=== PATIENT | male | born 1930 | race Caucasian/White ===

== ENCOUNTER 2016-09-09 12:30 | Emergency (ER) | payer MEDICARE ==
[~2016-09-09 12:30] MED LIST: Sodium Chloride 0.9% 1,000 ML BAG ONE; Sodium Chloride 0.9% 100 ML BAG ONE; Sodium Chloride 0.9% 500 ML BAG ONE
[2016-09-09] MEDS ORDERED: cefTRIAXone\\ROCEPHIN 1 GM VIAL ONE (13:11)
[2016-09-09 13:42] LABS: Anion Gap 19 mmol/L (10-20); BUN (Urea Nitrogen) 30 mg/dL (8.4-25.7); Calc. Creatinine Clearance 0 mL/min (70-130); Calcium 9.3 mg/dL (7.8-10.44); Carbon Dioxide 33 mmol/L (23-31); Chloride 96 mmol/L (98-107); Eosinophils 4 % (0-10); Estimated GFR-MDRD 64; Glucose 80 mg/dL (83-110); Hemoglobin 10.6 g/dL (14.0-18.0); Lymphocytes 30 % (21-51); MDiff Complete? YES; Mean Corpuscular HGB CONC 30.9 g/dL (32.0-36.0); Mean Corpuscular Hemoglobin 25.7 pg (27.0-31.0); Mean Corpuscular Volume 83.2 fl (80.0-94.0); Mean Platelet Volume 8.5 fL (7.4-10.4); Monocytes 10 % (0-10); Neutrophil 52 % (42-75); Platelet Count 262 thou/uL (130-400); Potassium 4.1 mmol/L (3.5-5.1); RBC Distribution Width 15.7 % (11.5-14.5); Reactive Lymphocytes 4 % (0-10); Red Blood Cell (RBC) Count 4.12 mill/uL (4.70-6.10); Sodium 144 mmol/L (136-145); White Blood Cell (WBC) Count 4.3 thou/uL (4.8-10.8)
--- NOTE | 2016-09-09 13:46 | CT ---
CT HEAD NONCONTRAST; Date: 09/09/16 HISTORY: Altered mental status. COMPARISON: 06/18/16. FINDINGS: There is no evidence of acute intracranial hemorrhage or infarct. Diffuse cortical atrophy and promi nent chronic ischemic small vessel disease are again demonstrated. Old lacunar infarcts and prominen t arterial calcification are evident. There is no mass effect or shift of midline structures. Left f rontal scalp swelling has decreased since the prior exam. IMPRESSION: No acute intracranial abnormalities are demonstrated. POS: [facility]
[2016-09-09 13:48] LABS: Bilirubin Negative (Negative); Blood, Urine Small (Negative); Clarity Clear (Clear); Glucose, Urine (Dipstick) Negative (Negative); Leukocyte Negative (Negative); Nitrite Negative (Negative); Protein, Urine (Dipstick) Negative (Neg-Trace); Specific Gravity, Urine 1.015 (1.005-1.030); Urobilinogen 0.2 mg/dL (0.2-1.0)
--- NOTE | 2016-09-09 13:51 | RAD ---
PORTABLE AP CHEST: Date: 09/09/16 HISTORY: Altered mental status. COMPARISON: 05/15/16. FINDINGS: Again noted are pleural and parenchymal changes at the right lung base, also seen on the prior exam. Findings may be related to persistent pneumonia and pleural effusion, but given persistence of this finding, CT scan thorax is suggested for further evaluation. There is persistent mild elevation left hemidiaphragm with mild volume loss at the left lung base. C ardiac silhouette is magnified by projection, but does appear enlarged. Pulmonary vasculature is wit hin normal limits. No other interval change. IMPRESSION: 1. Pleural and parenchymal changes at the right lung base. Given persistence of this finding since the prior study, CT scan thorax is suggested for further evaluation. 2. Mild cardiomegaly. 3. Stable elevation left hemidiaphragm. POS: [facility]
[2016-09-09 13:57] LABS: Bacteria/HPF Rare-Few HPF (None Seen); Squamous Epithelial 0-3 HPF (0-3); WBC/HPF 0-3 HPF (0-3)
[2016-09-09 13:58] LABS: Amphetamine Not Detected (NotDetected); Barbiturates Screen Not Detected (NotDetected); Benzodiazepine Screen Not Detected (NotDetected); Cocaine Metabolite Screen Not Detected (NotDetected); Medtox Control Line Valid? VALID (VALID); Methadone Not Detected (NotDetected); Methamphetamine Not Detected (NotDetected); Opiate Screen Not Detected (NotDetected); Oxycodone Screen Not Detected (NotDetected); Phencyclidine (PCP) Not Detected (NotDetected); THC/Cannabinoid Screen Not Detected (NotDetected); Tricyclic Screen Not Detected (NotDetected)
[2016-09-09 14:06] LABS: Troponin I 0.048 ng/mL (< 0.028)
[2016-09-09 14:07] LABS: CKMB 10.3 ng/mL (0-6.6)
--- NOTE | 2016-09-09 17:34 | ERRECORD ---
[facility] EMERGENCY RECORD HPI MENTAL STATUS CHANGES (12:51 RWAG) CHIEF COMPLAINT: Patient presents for evaluation of mental status changes. HISTORIAN: Additional history obtained from shelter, difficult to rouse at [place], cursing at staff when stimulated, last seen "normal" at 0930am. Pt has dementia. LOCATION: Symptoms are generalized. QUALITY: Patient is, oriented to person, [place] coma score, Eye opening: (3) To speech, Verbal: (3) - Inappropriate words, Motor: (5) - Localizes Pain, GCS Total: 11. SEVERITY: Maximum severity of symptoms mild, Currently symptoms are mild. TIME COURSE: Patient unable to describe onset of symptoms. EXACERBATED BY: Patient's condition exacerbated by nothing. RELIEVED BY: Patient's condition relieved by nothing. ROS (12:53 RWAG) CONSTITUTIONAL: Historian reports weakness. EYES: Negative eye review of systems. ENT: Negative ears, nose, throat review of systems. CARDIOVASCULAR: Negative cardiovascular review of systems. RESPIRATORY: Negative respiratory review of systems. GI: Negative gastrointestinal review of systems. GENITOURINARY MALE: Negative genitourinary review of systems. MUSCULOSKELETAL: Negative musculoskeletal review of systems. SKIN: Negative skin review of systems. NEUROLOGIC: Negative neurologic review of systems. ENDOCRINE: Negative endocrine review of systems. HEMO/LYMPHATIC: Normal hematologic/lymphatic system review. ALLERGIC/IMMUNOLOGIC: Normal allergy/immunologic system review. PSYCHIATRIC: Historian reports emotional lability, reports memory loss, reports mood changes. NOTES: All systems reviewed, negative except as described above. PAST MEDICAL HISTORY (12:43 AWAT) MEDICAL HISTORY: Notes: Skin cancer, Anemia, CHF, HypoNatremia, Hyperlipidemia, Insomnia, Constipation, Venous Insufficiency, Weakness, HTN, Dementia. MALE SURGICAL HISTORY: Skin ca removal -RIGHT HAND , RIGHT INGUINAL HERNIORRAPHY, Surgical history of hernia repair, Date of surgery 06/13/12, Notes DONE AT THE [facility]. LEFT KNEE REPLACEMENT, LAST [place] SPUR REMOVED. PSYCHIATRIC HISTORY: Notes: DEMENTIA, Anxiety. SOCIAL HISTORY: Patient denies alcohol use, Patient denies drug use, Patient has no smoking history. KNOWN ALLERGIES Advil: - LIPS SWELL aspirin (Unconfirmed) &a-1R&a+25V*p+0X*[id number]*c202B*c15G*c2P*p-0X&a-25V&a+1R Name: Prosper Stoll : 1930 M86 MedRec: [id number] AcctNum: [id number] Prepared: Sirisha Sep 25, 2016 06:15 by Interface Page 1 of 4 pMD [facility] EMERGENCY RECORD aspirin (bulk) furosemide (Unconfirmed): Reaction: Rash ibuprofen (Unconfirmed): - SWELLING LIPS Lasix: Reaction: Rash NSAIDS (Non-Steroidal Anti-Inflamma (Unconfirmed) RisperDAL risperidone (Unconfirmed) traZODone CURRENT MEDICATIONS Depakote: TABLET, DELAYED RELEASE (ENTERIC COATED) : Strength - 250 mg : ORAL Patient Dose: 250 mg Oral 2 times a day. (12:47 AWAT) melatonin: LOZENGE : Strength - 3 mg : ORAL Patient Dose: 10 mg Oral once a day (at bedtime). (12:47 AWAT) Miralax: POWDER (GRAM) : Strength - 17 gram/dose : ORAL Patient Dose: 17 g Oral once a day (in the morning). (12:47 AWAT) Aricept: TABLET : Strength - 10 mg : ORAL Patient Dose: 1 tab(s) Oral once a day (at bedtime). (12:47 AWAT) mirtazapine: TABLET : Strength - 15 mg : ORAL Patient Dose: 15 mg Oral once a day (at bedtime).last night was first dose. (12:48 AWAT) Bumex: TABLET : Strength - 2 mg : ORAL Patient Dose: 3 mg Oral 2 times a day. (12:48 AWAT) Senokot-S: TABLET : Strength - 8.6 mg-50 mg : ORAL Patient Dose: 1 tab(s) Oral 2 times a day. (12:49 AWAT) Aspirin Child: TABLET, CHEWABLE : Strength - 81 mg : ORAL Patient Dose: 81 mg Oral once a day. (12:49 AWAT) Zaroxolyn: TABLET : Strength - 5 mg : ORAL Patient Dose: 5 mg Oral once a week.on . (12:50 AWAT) K-Dur: TABLET, EXT RELEASE, PARTICLES/CRYSTALS : Strength - 20 mEq : ORAL Patient Dose: 20 mEq Oral 2 times a day. (12:51 AWAT) VITAL SIGNS VITAL SIGNS: BP: 134/59, Pulse: 72, Resp: 19, O2 sat: 99 on 2L Oxygen, Time: 09/09/2016 12:33. (12:33 AWA) Temp: 96.5 (Tympanic), Time: 09/09/2016 12:44. (12:44 CJEF) &a-1R&a+25V*p+0X*g3311G*c202B*c15G*c2P*p-0X&a-25V&a+1R Name: Prosper Stoll : 1930 M86 MedRec: [id number] AcctNum: [id number] Prepared: Sirisha Sep 25, 2016 06:15 by Interface Page 2 of 4 pMD [facility] EMERGENCY RECORD BP: 129/62, Pulse: 66, Resp: 20, Pain: 0, O2 sat: 98 on 2L Oxygen, Time: 09/09/2016 13:35. (13:35 CJEF) BP: 86/99, Pulse: 61, Resp: 15, Pain: 0, O2 sat: 97 on 2L Oxygen, Time: 09/09/2016 14:05. (14:05 CJEF) BP: 108/32, Pulse: 60, Resp: 18, Pain: 0, O2 sat: 100 on 2L Oxygen, Time: 09/09/2016 14:42. (14:42 CJEF) BP: 112/78, Pulse: 65, Resp: 15, Pain: 0, O2 sat: 95 on 2L Oxygen, Time: 09/09/2016 15:32. (15:32 CJEF) BP: 109/57, Pulse: 79, Resp: 20, Pain: 0, O2 sat: 100 on 2L Oxygen, Time: 09/09/2016 16:01. (16:01 CJEF) Temp: 94.5 (Tympanic), Time: 09/09/2016 16:03. (16:03 CJEF) BP: 126/77, Pulse: 76, Resp: 20, Pain: 0, O2 sat: 95 on 2L Oxygen, Time: 09/09/2016 16:26. (16:26 CJEF) BP: 134/89, Pulse: 75, Resp: 19, Temp: 95.6 (Tympanic), Pain: 0, O2 sat: 96 on 2L Oxygen, Time: 09/09/2016 16:50. (16:50 CJEF) BP: 116/70, Pulse: 71, Resp: 20, Pain: 0, O2 sat: 96 on 2L Oxygen, Time: 09/09/2016 17:04. (17:04 CJEF) BP: 100/57, Pulse: 66, Resp: 16, Pain: 0, O2 sat: 97 on 2L Oxygen, Time: 09/09/2016 17:16. (17:16 CJEF) Temp: 95.8 (Tympanic), Time: 09/09/2016 17:24. (17:24 CJEF) PHYSICAL EXAM (12:54 RWAG) CONSTITUTIONAL: Vital Signs Reviewed, Patient febrile, temperature of 96.5. HEAD: Head exam normal. EYES: Eye exam normal. ENT: ENT exam normal. NECK: Neck exam normal. RESPIRATORY CHEST: Respiratory and chest exam normal. CARDIOVASCULAR: Cardiovascular assessment normal. ABDOMEN MALE: Abdominal exam normal. GENITOURINARY MALE: External genitalia normal. BACK: Back exam normal. UPPER EXTREMITY: Upper extremity exam normal. LOWER EXTREMITY: Lower extremity exam included findings of inspection abnormal, chronic LE edema; Rx with compression wraps, Range of motion, pt contracted,bedridden. NEURO: Neuro exam findings include patient oriented to, person, [place] coma scale, Eye opening: (3) To speech, Verbal: (3) - Inappropriate words, Motor: (5) - Localizes Pain, GCS Total: 11. LYMPHATIC: Lymphatic exam normal. EKG INTERPRETATION (12:49 RWAG) 12 LEAD EKG INTERPRETATION: 12 lead EKG interpreted by Emergency Department Physician at time of study, 12 lead EKG shows normal sinus rhythm, Rate (beats per minute): 71, with no ectopics, No previous EKG available for comparison, Conduction normal, T waves normal, Radnor normal, Clinical impression:, non-specific EKG. &a-1R&a+25V*p+0X*[id number]*c202B*c15G*c2P*p-0X&a-25V&a+1R Name: Prosper Stoll : 1930 M86 MedRec: [id number] AcctNum: [id number] Prepared: Sirisha Sep 25, 2016 06:15 by Interface Page 3 of 4 pMD [facility] EMERGENCY RECORD RADIOLOGYINTERPRETATION (14:52 RW) CHEST: Chest films negative, no infiltrates, no pneumothorax, no hemothorax, no masses, no cardiomegaly, no congestive heart failure, no effusion, no free air. MEDICATION ADMINISTRATION SUMMARY Drug Name: *sodium chloride 0.9 % intravenous, Dose Ordered: 1 L, Route: IV Fluid Infusion, Status: Given, Time: 14:38 09/09/2016, Drug Name: *vancomycin intravenous, Dose Ordered: 1 g, Route: IV Piggy Back, Status: Given, Time: 14:22 09/09/2016, Drug Name: cefTRIAXone injection, Dose Ordered: 1 g, Route: IV Piggy Back, Status: Given, Time: 13:17 09/09/2016, Drug Name: sodium chloride 0.9 % intravenous, Dose Ordered: 500 mL, Route: IV Fluid Infusion, Status: Given, Time: 13:16 09/09/2016, *Additional information available in notes, Detailed record available in Medication Service section. PROBLEM LIST No recorded problems DIAGNOSIS (15:01 RW) FINAL: PRIMARY: Sepsis. PRESCRIPTION No recorded prescriptions DISPOSITION PATIENT: Disposition Type: Transfer, Disposition: Transfer to [facility], Disposition Transport: Ambulance, Condition: Guarded. (15:01 RW) Patient left the department. (17:[address] [facility]) Márquez: AWAT=SATNAM Faye, Moses CJEF=SATNAM Maya, Nellie RWAG=MD Freeman, Roby &a-1R&a+25V*p+0X*[id number]*c202B*c15G*c2P*p-0X&a-25V&a+1R Name: Prosper Stoll : 1930 M86 MedRec: [id number] AcctNum: [id number] Prepared: Sirisha Sep 25, 2016 06:15 by Interface Page 4 of 4 pMD MTDD
--- NOTE | 2016-09-09 17:37 | PICIS ---
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 administration, Line traced prior to administration, Catheter placement confirmed via flush prior to administration, IV site without signs or symptoms of infiltration during medication administration, No swelling during administration, No drainage during administration, IV flushed after administration, Correct patient, time, route, dose and medication confirmed prior to administration, Patient advised of actions and side-effects prior to administration, Allergies confirmed and medications reviewed prior to administration, Patient tolerated procedure well, Patient in position of comfort, Side rails up, Cart in lowest position, Family at bedside. : Follow Up : Response assessment performed, No signs or symptoms of allergic reaction noted, Site inspection shows, No swelling at administration site, No drainage at administration site, No bleeding at site, No bruising noted at site, _IV SITE #1:_, Medication infusion discontinued, on MonSep 09, 2016 13:50, 35 minutes, ., Total amount infused: 1G. (13:50 SFRE) sodium chloride 0.9 % intravenous: Order: sodium chloride 0.9 % &a-1R&a+25V*p+0X*[id number]*c202B*c15G*c2P*p-0X&a-25V&a+1R Name: Prosper Stoll : 1930 M86 MedRec: [id number] AcctNum: [id number] Prepared: Sirisha Sep 25, 2016 06:21 by Interface Page 10 of 18 pMD [facility] EMERGENCY RECORD intravenous (0.9 % sodium chloride) - Dose: 500 mL : IV Fluid Infusion Schedule: Now Ordered by: Roby Millard MD Entered by: Roby Millard MD MonSep 09, 2016 12:48 Documented as given by: Moses Faye RN MonSep 09, 2016 13:16 Patient, Medication, Dose, Route and Time verified prior to administration. Amount given: 500ml, IV SITE #1 IV fluids established for hydration, IV SITE #1 into left wrist, IV SITE #1 1st bag hung, IV SITE #1 bolus of 500 ml established, via primary tubing, IV SITE #1 on IV pump, Awake and alert- acceptable, Connections checked prior to administration, Line traced prior to administration, Catheter placement confirmed via flush prior to administration, IV site without signs or symptoms of infiltration during medication administration, No swelling during administration, No drainage during administration, IV flushed after administration, Correct patient, time, route, dose and medication confirmed prior to administration, Patient advised of actions and side-effects prior to administration, Allergies confirmed and medications reviewed prior to administration, Patient tolerated procedure well, Patient in position of comfort, Side rails up, Cart in lowest position, Family at bedside. : Follow Up : Response assessment performed, No signs or symptoms of allergic reaction noted, _IV SITE #1:_, IV fluid infusion discontinued, on MonSep 09, 2016 14:03, 50 minutes, ., Total amount infused: 500MG, Advised not to ambulate without assistance, Patient in position of comfort, Side rails up, Cart in lowest position, Family at bedside. (14:03 [facility]) sodium chloride 0.9 % intravenous: Order: sodium chloride 0.9 % intravenous (0.9 % sodium chloride) - Dose: 1 L : IV Fluid Infusion Schedule: Now Notes: (Bolus) Ordered by: Roby Millard MD Entered by: Roby Mlilard MD MonSep 09, 2016 14:21 , Acknowledged by: Kira Gaspar RN MonSep 09, 2016 14:30 Documented as given by: Kira Gaspar RN MonSep 09, 2016 14:38 Patient, Medication, Dose, Route and Time verified prior to administration. Amount given: 1L, IV SITE #1 IV fluids established for hydration, IV SITE #1 into right forearm, IV SITE #1 2nd bag hung, amount 1 Liter hung, IV SITE #1 bolus of 1000 ml established, IV SITE #1 Rate of bolus, 999, ml/hr, IV SITE #1 Repeat bolus of 1000 ml established, Type: NS, Awake and alert- acceptable, Catheter placement confirmed via flush prior to administration, IV site without signs or symptoms of infiltration during medication administration, No swelling during administration, No drainage during administration, IV flushed after administration, Correct patient, time, route, dose and medication confirmed prior to administration, Patient advised of actions and side-effects prior to administration, Allergies confirmed and &a-1R&a+25V*p+0X*[id number]*c202B*c15G*c2P*p-0X&a-25V&a+1R Name: Prosper Stoll : 1930 M86 MedRec: [id number] AcctNum: [id number] Prepared: Sirisha Sep 25, 2016 06:21 by Interface Page 11 of 18 pMD [facility] EMERGENCY RECORD medications reviewed prior to administration, Patient in position of comfort, Side rails up, Cart in lowest position, Family at bedside. : Follow Up : Response assessment performed, No signs or symptoms of allergic reaction noted, _IV SITE #1:_, IV fluid infusion discontinued, on MonSep 09, 2016 16:03, Total fluid hydration time IV site 1 1 hour, 25 minutes, ., Total amount infused: 1L. (16:03 SFRE) vancomycin intravenous: Order: vancomycin intravenous (vancomycin HCl) - Dose: 1 g : IV Piggy Back Schedule: Now Notes: If not premixed, mix vial in 250mL NS or 250mL D5W. Ordered by: Roby Millard MD Entered by: Roby Millard MD MonSep 09, 2016 14:17 , Acknowledged by: Kira Gaspar RN MonSep 09, 2016 14:21 Documented as given by: Kira Gaspar RN MonSep 09, 2016 14:22 Patient, Medication, Dose, Route and Time verified prior to administration. Amount given: 1G, IV SITE #1 IVPB or drip, subsequent infusion, IVPB mixed in: 250ml, Fluid: 0.9NS, via pump tubing, on an IV pump, Awake and alert- acceptable, Catheter placement confirmed via flush prior to administration, IV site without signs or symptoms of infiltration during medication administration, No swelling during administration, No drainage during administration, IV flushed after administration, Correct patient, time, route, dose and medication confirmed prior to administration, Patient advised of actions and side-effects prior to administration, Allergies confirmed and medications reviewed prior to administration, Patient in position of comfort, Side rails up, Cart in lowest position, Family at bedside. : Follow Up : Response assessment performed, No signs or symptoms of allergic reaction noted, _IV SITE #1:_, Medication infusion discontinued, on MonSep 09, 2016 16:13, Total infusion time IV site 1 1 hour, 55 minutes, ., Total amount infused: 250ML, Advised not to ambulate without assistance, Patient in position of comfort, Side rails up, Cart in lowest position, Family at bedside. (16:12 [facility]) HPI MENTAL STATUS CHANGES (12:51 RWAG) CHIEF COMPLAINT: Patient presents for evaluation of mental status changes. HISTORIAN: Additional history obtained from assisted, difficult to rouse at [place], cursing at staff when stimulated, last seen "normal" at 0930am. Pt has dementia. LOCATION: Symptoms are generalized. QUALITY: Patient is, oriented to person, Alvord coma score, Eye opening: (3) To speech, Verbal: (3) - Inappropriate words, Motor: (5) - Localizes Pain, GCS Total: 11. SEVERITY: Maximum severity of symptoms mild, Currently symptoms are mild. TIME COURSE: Patient unable to describe onset of symptoms. EXACERBATED BY: Patient's condition exacerbated by nothing. &a-1R&a+25V*p+0X*w2890Z*c202B*c15G*c2P*p-0X&a-25V&a+1R Name: Prosper Stoll : 1930 M86 MedRec: [id number] AcctNum: [id number] Prepared: Sirisha Sep 25, 2016 06:21 by Interface Page 12 of 18 pMD [facility] EMERGENCY RECORD RELIEVED BY: Patient's condition relieved by nothing. ROS (12:53 RW) CONSTITUTIONAL: Historian reports weakness. EYES: Negative eye review of systems. ENT: Negative ears, nose, throat review of systems. CARDIOVASCULAR: Negative cardiovascular review of systems. RESPIRATORY: Negative respiratory review of systems. GI: Negative gastrointestinal review of systems. GENITOURINARY MALE: Negative genitourinary review of systems. MUSCULOSKELETAL: Negative musculoskeletal review of systems. SKIN: Negative skin review of systems. NEUROLOGIC: Negative neurologic review of systems. ENDOCRINE: Negative endocrine review of systems. HEMO/LYMPHATIC: Normal hematologic/lymphatic system review. ALLERGIC/IMMUNOLOGIC: Normal allergy/immunologic system review. PSYCHIATRIC: Historian reports emotional lability, reports memory loss, reports mood changes. NOTES: All systems reviewed, negative except as described above. PAST MEDICAL HISTORY (12:43 AWAT) MEDICAL HISTORY: Notes: Skin cancer, Anemia, CHF, HypoNatremia, Hyperlipidemia, Insomnia, Constipation, Venous Insufficiency, Weakness, HTN, Dementia. MALE SURGICAL HISTORY: Skin ca removal -RIGHT HAND , RIGHT INGUINAL HERNIORRAPHY, Surgical history of hernia repair, Date of surgery 06/13/12, Notes DONE AT [facility]. LEFT KNEE REPLACEMENT, LAST VERTEABRA SPUR REMOVED. PSYCHIATRIC HISTORY: Notes: DEMENTIA, Anxiety. SOCIAL HISTORY: Patient denies alcohol use, Patient denies drug use, Patient has no smoking history. PHYSICAL EXAM (12:54 RWAG) CONSTITUTIONAL: Vital Signs Reviewed, Patient febrile, temperature of 96.5. HEAD: Head exam normal. EYES: Eye exam normal. ENT: ENT exam normal. NECK: Neck exam normal. RESPIRATORY CHEST: Respiratory and chest exam normal. CARDIOVASCULAR: Cardiovascular assessment normal. ABDOMEN MALE: Abdominal exam normal. GENITOURINARY MALE: External genitalia normal. BACK: Back exam normal. UPPER EXTREMITY: Upper extremity exam normal. LOWER EXTREMITY: Lower extremity exam included findings of inspection abnormal, chronic LE edema; Rx with compression wraps, Range of motion, pt contracted,bedridden. &a-1R&a+25V*p+0X*s8891O*c202B*c15G*c2P*p-0X&a-25V&a+1R Name: Prosper Stoll : 1930 M86 MedRec: [id number] AcctNum: [id number] Prepared: Sirisha Sep 25, 2016 06:21 by Interface Page 13 of 18 pMD [facility] EMERGENCY RECORD NEURO: Neuro exam findings include patient oriented to, person, Manjeet coma scale, Eye opening: (3) To speech, Verbal: (3) - Inappropriate words, Motor: (5) - Localizes Pain, GCS Total: 11. LYMPHATIC: Lymphatic exam normal. EVENTS TRANSFER: Triage to Emergency Main ED -01. (MonSep 09, 2016 12:36 AWAT) Removed from Emergency Main ED -01. (17:24 [facility]) RADIOLOGYINTERPRETATION (14:52 RWAG) CHEST: Chest films negative, no infiltrates, no pneumothorax, no hemothorax, no masses, no cardiomegaly, no congestive heart failure, no effusion, no free air. EKG INTERPRETATION (12:49 RW) 12 LEAD EKG INTERPRETATION: 12 lead EKG interpreted by Emergency Department Physician at time of study, 12 lead EKG shows normal sinus rhythm, Rate (beats per minute): 71, with no ectopics, No previous EKG available for comparison, Conduction normal, T waves normal, [place] normal, Clinical impression:, non-specific EKG. PROBLEM LIST No recorded problems DIAGNOSIS (15:01 RW) FINAL: PRIMARY: Sepsis. DISPOSITION PATIENT: Disposition Type: Transfer, Disposition: Transfer to [facility], Disposition Transport: Ambulance, Condition: Guarded. (15:01 RW) Patient left the department. (17:24 [facility]) PRESCRIPTION No recorded prescriptions IMAGING NH PAPERS: Image captured from scanner. (12:52 JPAR) Page 2 added. Image captured from scanner. (12:52 JPAR) Page 3 added. Image captured from scanner. (12:52 JPAR) Page 4 added. Image captured from scanner. (12:52 JPAR) Page 5 added. Image captured from scanner. (12:53 JPAR) Page 6 added. Image captured from scanner. (12:53 JPAR) Page 7 added. Image captured from scanner. (12:53 JPAR) *EKG: Image captured from scanner. (12:55 JPAR) *MEMORANDUM OF TRANSFER: Image captured from scanner. (15:05 AWAT) EMS TRANSPORT ORDERS: Image captured from scanner. (15:05 AWAT) &a-1R&a+25V*p+0X*h8752S*c202B*c15G*c2P*p-0X&a-25V&a+1R Name: Prosper Stoll : 1930 M86 MedRec: [id number] AcctNum: [id number] Prepared: Sirisha Sep 25, 2016 06:21 by Interface Page 14 of 18 pMD [facility] EMERGENCY RECORD CONSENTS: Image captured from scanner. (15:35 AWAT) DNR - ADVANCE DIRECTIVE: Image captured from scanner. (15:35 AWAT) DR VISIT NOTES AND LABS: Image captured from scanner. (15:53 JPAR) Page 2 added. Image captured from scanner. (15:53 JPAR) Page 3 added. Image captured from scanner. (15:53 JPAR) Page 4 added. Image captured from scanner. (15:53 JPAR) Page 5 added. Image captured from scanner. (15:54 JPAR) Page 6 added. Image captured from scanner. (15:54 JPAR) Page 7 added. Image captured from scanner. (15:54 JPAR) MIST FORM: Image captured from scanner. (16:07 JPAR) EMS CALL-IN REPORT: Image captured from scanner. (16:07 JPAR) TRANSFER WORKSHEET: Image captured from scanner. (17:25 AWAT) Page 2 added. Image captured from scanner. (17:26 AWAT) *SUPPLY CHARGE SHEET: Image captured from scanner. (17:27 CJEF) ADMIN (Sirisha Sep 25, 2016 06:07 [facility]) DIGITAL SIGNATURE: MD Millard Richard. RESULTS RADIOLOGY: CT Brain WO Con Observe DT: MonSep 09, 2016 12:48, BR CT HEAD NONCONTRAST; Date: 09/09/16 HISTORY: Altered mental status. COMPARISON: 06/18/16. FINDINGS: There is no evidence of acute intracranial hemorrhage or infarct. Diffuse cortical atrophy and promi nent chronic ischemic small vessel disease are again demonstrated. Old lacunar infarcts and prominen t arterial calcification are evident. There is no mass effect or shift of midline structures. Left f rontal scalp swelling has decreased since the prior exam. IMPRESSION: No acute intracranial abnormalities are demonstrated. POS: [facility] . (14:04 CJEF) XR Chest 1 View Portable Observe DT: MonSep 09, 2016 12:48, CXRP &a-1R&a+25V*p+0X*d4100V*c202B*c15G*c2P*p-0X&a-25V&a+1R Name: Prosper Stoll : 1930 M86 MedRec: [id number] AcctNum: [id number] Prepared: Sirisha Sep 25, 2016 06:21 by Interface Page 15 of 18 pMD [facility] EMERGENCY RECORD PORTABLE AP CHEST: Date: 09/09/16 HISTORY: Altered mental status. COMPARISON: 05/15/16. FINDINGS: Again noted are pleural and parenchymal changes at the right lung base, also seen on the prior exam. Findings may be related to persistent pneumonia and pleural effusion, but given persistence of this finding, CT scan thorax is suggested for further evaluation. There is persistent mild elevation left hemidiaphragm with mild volume loss at the left lung base. C ardiac silhouette is magnified by projection, but does appear enlarged. Pulmonary vasculature is wit hin normal limits. No other interval change. IMPRESSION: 1. Pleural and parenchymal changes at the right lung base. Given persistence of this finding since the prior study, CT scan thorax is suggested for further evaluation. 2. Mild cardiomegaly. 3. Stable elevation left hemidiaphragm. POS: [facility] . (14:16 RWAG) LABORATORY: CBC with Differential Collection DT: MonSep 09, 2016 13:19, *White Blood Cell (WBC) Count 4.3 - L thou/uL, Range (4.8-10.8), *Red Blood Cell (RBC) Count 4.12 - L mill/uL, Range (4.70-6.10), *Hemoglobin 10.6 - L g/dL, Range (14.0-18.0), *Hematocrit 34.3 - L %, Range (42.0-52.0), Mean Corpuscular Volume 83.2 fl, Range (80.0-94.0), *Mean Corpuscular Hemoglobin 25.7 - L pg, Range (27.0-31.0), *Mean Corpuscular HGB CONC 30.9 - L g/dL, Range (32.0-36.0), *RBC Distribution Width 15.7 - H %, Range (11.5-14.5), Platelet Count 262 thou/uL, Range (130-400), &a-1R&a+25V*p+0X*n9595M*c202B*c15G*c2P*p-0X&a-25V&a+1R Name: Prosper Stoll : 1930 M86 MedRec: [id number] AcctNum: [id number] Prepared: Sirisha Sep 25, 2016 06:21 by Interface Page 16 of 18 pMD [facility] EMERGENCY RECORD Mean Platelet Volume 8.5 fL, Range (7.4-10.4), Neutrophil 52 %, Range (42-75), Lymphocytes 30 %, Range (21-51), Reactive Lymphocytes 4 %, Range (0-10), Monocytes 10 %, Range (0-10), Eosinophils 4 %, Range (0-10). (13:46 AWAT) Basic Metabolic Panel Collection DT: MonSep 09, 2016 13:19, Sodium 144 mmol/L, Range (136-145), Potassium 4.1 mmol/L, Range (3.5-5.1), *Chloride 96 - L mmol/L, Range (98-107), *Carbon Dioxide 33 - H mmol/L, Range (23-31), Anion Gap 19 mmol/L, Range (10-20), *BUN (Urea Nitrogen) 30 - H mg/dL, Range (8.4-25.7), Creatinine 1.09 mg/dL, Range (0.7-1.3), Estimated GFR-MDRD 64 , Reference Range for Estimated GFR: Greater than 90, mL/min/1.73 m2 NOTE: The MDRD equation has not been validated for use, with the elderly (over 70 years of age), women, patients with, serious comorbid condition or persons with extremes of body size, muscle, mass, or nutritional status. , *Glucose 80 - L mg/dL, Range (83-110), Calcium 9.3 mg/dL, Range (7.8-10.44). (13:46 AWAT) Drug Screen, Urine Collection DT: MonSep 09, 2016 13:47, THC/Cannabinoid Screen Not Detected , Range (NotDetected), Phencyclidine (PCP) Not Detected , Range (NotDetected), Cocaine Metabolite Screen Not Detected , Range (NotDetected), Methamphetamine Not Detected , Range (NotDetected), Opiate Screen Not Detected , Range (NotDetected), Amphetamine Not Detected , Range (NotDetected), Benzodiazepine Screen Not Detected , Range (NotDetected), Tricyclic Screen Not Detected , Range (NotDetected), Methadone Not Detected , Range (NotDetected), Barbiturates Screen Not Detected , Range (NotDetected), Oxycodone Screen Not Detected , Range (NotDetected), Propoxyphene Screen Not Detected , Range (NotDetected), Drug Screen Cutoff , Range (), The Bactest Profile-V Panel for Qualitative Drugs of Abuse assays are for, presumptive screening testing only. The drug class and detection limits, are as follows: Drug Class Detection Limit Amphetamine , 500 ng/mL* Barbiturates 200 ng/mL , Benzodiazepines 150 ng/mL* Cocaine 150 ng/mL*, Methamphetamine 500 ng/mL* Methadone 200, ng/mL* Opiates 100 ng/mL* &a-1R&a+25V*p+0X*s4968C*c202B*c15G*c2P*p-0X&a-25V&a+1R Name: Prosper Stoll : 1930 M86 MedRec: [id number] AcctNum: [id number] Prepared: Sirisha Sep 25, 2016 06:21 by Interface Page 17 of 18 pMD [facility] EMERGENCY RECORD Oxycodone , 100 ng/mL PCP 25 ng/mL Propoxyphene , 300 ng/mL Tricyclic Antidepressants 300 ng/mL Cannabinoids (THC) , 50 ng/mL Tests which yield a presumptive positive result must be , tested using a more specific alternate chemical method in order to obtain, a confirmed analytical result. Additional confirmation and identification, may be ordered on a routine basis, if desired. Presumptive positive urines, are held for two weeks. . (14:04 [facility]) Urine Microscopic Collection DT: MonSep 09, 2016 13:47, RBC/HPF 4-6 HPF, Range (0-3), WBC/HPF 0-3 HPF, Range (0-3), Squamous Epithelial 0-3 HPF, Range (0-3), Bacteria/HPF Rare-Few HPF, Range (None Seen). (14:04 [facility]) Urinalysis w/ Rflx Microscopic Collection DT: MonSep 09, 2016 13:47, Color Yellow , Range (Yellow), Clarity Clear , Range (Clear), Specific [place], Urine 1.015 , Range (1.005-1.030), pH, Urine 7.0 , Range (5.0-9.0), Leukocyte Negative , Range (Negative), Nitrite Negative , Range (Negative), Protein, Urine (Dipstick) Negative mg/dL, Range (Neg-Trace), Glucose, Urine (Dipstick) Negative mg/dL, Range (Negative), Ketone, Urine Negative mg/dL, Range (Negative), Urobilinogen 0.2 mg/dL, Range (0.2-1.0), Bilirubin Negative , Range (Negative), *Blood, Urine Small - H , Range (Negative). (14:04 CJ) Lactic Acid for Sepsis Collection DT: MonSep 09, 2016 13:19, *Lactic Acid - Sepsis 2.6 - H mmol/L, Range (0.5-2.2). (14:04 CJ) Cardiac Profile w/CKMB & TropI Collection DT: MonSep 09, 2016 13:19, Critical Call CKMBM @5539 , *CKMB 10.3 - *H ng/mL, Range (0-6.6), Critical value! Critical value!, *Troponin I 0.048 - H ng/mL, Range (< 0.028), Reference Range , 0.00 - 0.028 ng/mL Negative 0.029 - 0.29 ng/mL , Indeterminate Greater or Equal to 0.3 ng/mL Strongly suggests [place] , . (14:16 RW) Accuchek Collection DT: MonSep 09, 2016 14:41, Accuchek 81 mg/dL, Range (70-110). (14:44 CJ) Márquez: AWAT=SATNAM Faye, Moses CJEF=SATNAM Maya, Nellie JPAR=DIAZ Curry Julia RWAG=MD Freeman, Roby SFRE=SATNAM Gaspar, Kira &a-1R&a+25V*p+0X*r5727F*c202B*c15G*c2P*p-0X&a-25V&a+1R Name: Prosper Stoll : 1930 M86 MedRec: [id number] AcctNum: [id number] Prepared: Sriisha Sep 25, 2016 06:21 by Interface Page 18 of 18 pMD [facility] MEDICATION RECONCILIATION You were seen in the Emergency Department on: MonSep 09, 2016 KNOWN ALLERGIES Advil: - LIPS SWELL aspirin (Unconfirmed) aspirin (bulk) furosemide (Unconfirmed): Reaction: Rash ibuprofen (Unconfirmed): - SWELLING LIPS Lasix: Reaction: Rash NSAIDS (Non-Steroidal Anti-Inflamma (Unconfirmed) RisperDAL risperidone (Unconfirmed) traZODone MEDICATIONS GIVEN WHILE IN THE EMERGENCY DEPARTMENT cefTRIAXone injection (ceftriaxone sodium) - Dose: 1 gram(s) : IV Piggy Back sodium chloride 0.9 % intravenous (0.9 % sodium chloride) - Dose: 500 milliliter(s) : IV Fluid Infusion vancomycin intravenous (vancomycin HCl) - Dose: 1 gram(s) : IV Piggy Back sodium chloride 0.9 % intravenous (0.9 % sodium chloride) - Dose: 1 liter(s) : IV Fluid Infusion HOME MEDICATIONS CONTINUE PRESCRIBED Aricept : TABLET : Strength - 10 mg : ORAL Continue as prescribed Patient had been takin tab(s) Oral once a day (at bedtime). Aspirin Child : TABLET, CHEWABLE : Strength - 81 mg : ORAL Continue as prescribed Patient had been takin mg Oral once a day. Bumex : TABLET : Strength - 2 mg : ORAL Continue as prescribed Patient had been takin mg Oral 2 times a day. Depakote : TABLET, DELAYED RELEASE (ENTERIC COATED) : Strength - 250 mg : ORAL Continue as prescribed Patient had been takin mg Oral 2 times a day. &a-1R&a+25V*p+0X*b2839H*c202B*c15G*c2P*p-0X&a-25V&a+1R Name: Prosper Stoll : 1930 M86 MedRec: [id number] AcctNum: [id number] Prepared: Sirisha Sep 25, 2016 06:21 by Interface pMD [facility] MEDICATION RECONCILIATION K-Dur : TABLET, EXT RELEASE, PARTICLES/CRYSTALS : Strength - 20 mEq : ORAL Continue as prescribed Patient had been takin mEq Oral 2 times a day. melatonin : LOZENGE : Strength - 3 mg : ORAL Continue as prescribed Patient had been takin mg Oral once a day (at bedtime). Miralax : POWDER (GRAM) : Strength - 17 gram/dose : ORAL Continue as prescribed Patient had been takin g Oral once a day (in the morning). mirtazapine : TABLET : Strength - 15 mg : ORAL Continue as prescribed Patient had been takin mg Oral once a day (at bedtime). Comment: last night was first dose. Senokot-S : TABLET : Strength - 8.6 mg-50 mg : ORAL Continue as prescribed Patient had been takin tab(s) Oral 2 times a day. Zaroxolyn : TABLET : Strength - 5 mg : ORAL Continue as prescribed Patient had been takin mg Oral once a week. Comment: on . Notes from the emergency department Reviewed with family &a-1R&a+25V*p+0X*a7086E*c202B*c15G*c2P*p-0X&a-25V&a+1R Name: Prosper Stoll : 1930 M86 MedRec: [id number] AcctNum: [id number] Prepared: Sirisha Sep 25, 2016 06:21 by Interface Amanda STEWART
== END 2016-09-09 17:24 | disposition short-term general hospital (02) ==
LOC: MADERS 12:30
DX: A41.9 Sepsis, unspecified organism (principal); E78.5 Hyperlipidemia, unspecified; I11.0 Hypertensive heart disease with heart failure; I50.9 Heart failure, unspecified; F03.90 Unspecified dementia, unspecified severity, without behavioral disturbance, psychotic disturbance, mood disturbance, and anxiety; F41.9 Anxiety disorder, unspecified; Z79.82 Long term (current) use of aspirin; Z79.899 Other long term (current) drug therapy
CPT/HCPCS: 36415; 36416; 51702; 70450; 71010; 80048; 80306; 81003; 81015; 82553; 83605; 84484; 85025; 87040; 87077; 87086; 87149; 93005; 96365; 96366; 96367; J0696; J3370; J7050

== ENCOUNTER 2016-10-20 10:03 | Inpatient (IN) | payer MEDICARE ==
[2016-10-20 11:01] LABS: #Eosinphils 0.2 thou/uL (0.0-0.7); #Lymphocytes 0.9 thou/uL (1.20-3.40); #Monocytes 0.7 thou/uL (0.11-0.59); #Neutrophils 4.5 thou/uL (1.40-6.50); %Basophils 0.3 % (0.0-1.0); %Eosinophils 2.9 % (0.0-10.0); %Lymphocytes 14.8 % (21.0-51.0); %Monocytes 11.6 % (0.0-10.0); %Neutrophils 70.5 % (42.0-75.0); Hemoglobin 10.5 g/dL (14.0-18.0); Mean Corpuscular HGB CONC 31.6 g/dL (32.0-36.0); Mean Corpuscular Hemoglobin 26.2 pg (27.0-31.0); Mean Corpuscular Volume 82.9 fl (80.0-94.0); Mean Platelet Volume 8.9 fL (7.4-10.4); Platelet Count 214 thou/uL (130-400); RBC Distribution Width 17.9 % (11.5-14.5); White Blood Cell (WBC) Count 6.4 thou/uL (4.8-10.8)
[2016-10-20 11:08] LABS: PTT 32.4 SEC (22.9-36.1); Prothrombin Time 13.8 SEC (12.0-14.7)
[2016-10-20 11:17] LABS: ALT (SGPT) 16 U/L (0-55); AST (SGOT) 20 U/L (5-34); Albumin 3.1 g/dL (3.4-4.8); Alkaline Phosphatase 97 U/L (40-150); Anion Gap 12 mmol/L (10-20); BUN (Urea Nitrogen) 25 mg/dL (8.4-25.7); Bilirubin, Total Less than 0.3 mg/dL (0.2-1.2); CK (CPK) 52 U/L (30-200); Calc. Creatinine Clearance 0 mL/min (70-130); Carbon Dioxide 33 mmol/L (23-31); Chloride 91 mmol/L (98-107); Estimated GFR-MDRD 71; Globulin 3.8 g/dL (2.4-3.5); Glucose 88 mg/dL (83-110); Protein, Total 6.9 g/dL (5.8-8.1); Sodium 132 mmol/L (136-145)
--- NOTE | 2016-10-20 11:28 | RAD ---
PORTABLE CHEST: History: Pleural effusion. Comparison: 09-13-16 FINDINGS: The heart size appears enlarged. Right sided pleural changes may be slightly improved as compared t o the prior exam. Left lung is clear. IMPRESSION: 1. Mild cardiomegaly. 2. Suggestion of some slight improvement to the right sided pleural changes. POS: [facility]
[2016-10-20 11:35] LABS: Troponin I 0.037 ng/mL (< 0.028)
[2016-10-20 11:37] LABS: CKMB 7.4 ng/mL (0-6.6)
[2016-10-20 13:10] LABS: Bilirubin Negative (Negative); Blood, Urine Moderate (Negative); Clarity Slightly Cloudy (Clear); Glucose, Urine (Dipstick) Negative (Negative); Leukocyte Large (Negative); Nitrite Positive (Negative); Protein, Urine (Dipstick) 100 mg/dL (Neg-Trace); Urobilinogen 0.2 mg/dL (0.2-1.0)
[2016-10-20 13:11] LABS: Squamous Epithelial 0-3 HPF (0-3)
[2016-10-20 13:12] LABS: Bacteria/HPF 1+ HPF (None Seen)
[2016-10-20] MEDS ORDERED: Enoxaparin Sodium 40 MG/0.4 ML SYRINGE ONE (13:42)
[2016-10-20] MEDS ORDERED: Sodium Chloride 0.9% 1,000 ML IV SCH (14:38)
[2016-10-20] MEDS ORDERED: Guaifenesin DM 100-10/5 ML UDCUP PO PRN (14:38)
[2016-10-20] MEDS ORDERED: Acetaminophen 650 MG Suppository PR PRN (14:38)
[2016-10-20] MEDS ORDERED: Bisacodyl 10 MG SUPP PR PRN (14:38)
[2016-10-20] MEDS ORDERED: Ondansetron ODT 4 MG TAB SL PRN (14:38)
[2016-10-20] MEDS ORDERED: Loperamide HCl 2 MG CAP PO PRN ×2 (14:38)
[2016-10-20 15:29] LABS: Anion Gap 14 mmol/L (10-20)
[2016-10-20 15:37] VITALS: BMI 20.7
[2016-10-20 17:10] LABS: ALT (SGPT) 16 U/L (0-55); AST (SGOT) 22 U/L (5-34); Albumin 2.9 g/dL (3.4-4.8); Alkaline Phosphatase 91 U/L (40-150); BUN (Urea Nitrogen) 23 mg/dL (8.4-25.7); Bilirubin, Total 0.3 mg/dL (0.2-1.2); Calc. Creatinine Clearance 60 mL/min (70-130); Calcium 8.9 mg/dL (7.8-10.44); Carbon Dioxide 29 mmol/L (23-31); Chloride 92 mmol/L (98-107); Estimated GFR-MDRD 87; Globulin 3.5 g/dL (2.4-3.5); Glucose 101 mg/dL (83-110); Potassium 4.3 mmol/L (3.5-5.1); Protein, Total 6.4 g/dL (5.8-8.1); Sodium 131 mmol/L (136-145)
[2016-10-20] MEDS: Dextrose 5 % And 0.9 % NaCl 1,000 ML IV SCH (18:22)
[2016-10-20] MEDS: cefTRIAXone\\ROCEPHIN 1 GM in Sodium Chloride 0.9% 100 ML IVPB SCH (18:22)
[2016-10-20] MEDS ORDERED: FLU VACC TS2016-17(65YR +) 0.5 ML SYRINGE IM ONE (21:00)
--- NOTE | 2016-10-20 21:29 | HP ---
DATE OF SERVICE: 10/20/2016 CHIEF COMPLAINT: Unresponsive. HISTORY OF PRESENT ILLNESS: Patient is an 86-year-old white male who resides in the custodial. He has a history of advanced Alzheimer disease, severe generalized weakness that has left him nonamb ulatory. He also has hypertension, coronary heart disease, venous insufficiency, TIAs and aortic st enosis. The patient was last hospitalized at [facility] from 09/09/2016-09/14/2016 for a spiration pneumonia. He was discharged back to the custodial on a pureed diet with thickened liq uids. He also has a history of diastolic congestive heart failure complicated by episodes of acute CHF, which presently has been stable. At present, he is in the secure unit and requires assistance with all his ADLs. On the day of admission nurses said that the patient could not be aroused for which he was sent to [facility] emergency room. The patient's said for the last few days he has been eating very poorly. H e has not done well on the purred diet and does not like the thickened liquids. Patient on the morn ing of admission was not responsive. He was referred to the emergency room where he was found to be obtunded. He was started on IV fluids, had blood cultures obtained and lab studies showed an H\T\H of 10.5 and 33.1 and white blood cell count was 6400 with 71% segs, 15% lymphocytes, and platelet c ount of 214,000. His sodium was 132, potassium 4, BUN 25, creatinine 0.99, glucose 88, magnesium 2, total bilirubin less than 0.3, AST 20, ALT 16, alkaline phosphatase 97. CK-MB 7.4. Troponin I 0.0 37. B-type natriuretic peptide 232. Albumin 3.1. His cath urine showed specific gravity 1.20. Th ere is nitrite was positive, rbc's 4-6, wbc's too numerous to count, 0-3 epithelial cells, and 1+ ba cteria. His chest x-ray showed the lungs to be clear. There is mild cardiomegaly and some mild bobo vation of the left hemidiaphragm. The patient has IV fluid started. The patient was admitted to [facility] with the diagnosis of urinary tract infection. The patient was seen soon after his admission to this hospital room. Patient's and daughter we re with him and was able to review the changes had been occurring over the last week. His and daughter said that he started to wake up and started to be more responsive. PAST HISTORY: Last hospitalization was on 09/09/2016-09/14/2016 at [facility] for aspira tion pneumonia and patient was hospitalized at [facility] from 05/17/2016-05/27/2016 for right lower lobe pneumonia that presented with alteration in mental status, hypothermia, acute exacerbati on of chronic diastolic congestive failure. The patient has advanced Alzheimer disease, then compli cated by behavioral issues that are reasonably controlled. He has severe generalized weakness where he is no longer ambulatory and is able to get around usually some in a wheelchair and requires assi stance with all his ADLs. He is unable to transfer independently. The patient has hypertension, co ronary artery disease for which he had a stent placed many years ago. He has had problems in the pa st with orthostatic hypotension complicated by syncope with possible seizures. He has not required any seizure medication. Previously, he had an EEG that was negative. He has been treated with Esme inef and support hose in the past for the orthostasis. He was hospitalized in 08/2013 for bilateral pulmonary embolism treated for few months with Coumadin and then this has been stopped. He has sev ere venous insufficiency of the lower extremity. He has a history of iron deficiency anemia. He ambrocio s undergone colonoscopy that was negative. EGD showed focal area of gastritis and small hiatal yanci ia yet no signs of any bleeding. He has had an appendectomy, hemorrhoidectomy, right inguinal herni a repair, left total knee replacement, diskectomy with cervical spine in 2001 for ruptured disk, edmar gical repair of a deep laceration of abdominal wall secondary to a fall on barbed wire and operation on his left hand. He has advanced Alzheimer's disease. PRESENT MEDICATIONS: Acetaminophen 325 mg 2 every 4 hours as needed, Aricept 23 mg 1 daily, aspirin 81 mg daily, Bumex 3 mg b.i.d., Depakote Sprinkle 250 mg b.i.d., Dulcolax suppository 10 mg 1 per r ectum daily p.r.n., DuoNeb by nebulizer every 4 hours as needed, Fleet Enema daily p.r.n., Maalox 30 mL every 4 hours b.i.d. as needed for indigestion, melatonin 10 mg at bedtime, MiraLax 17 grams 8 o unces of water daily, mirtazapine 15 mg at bedtime, KCl 20 mEq b.i.d., Senokot-S 1 b.i.d., Zaroxolyn 5 mg 1 daily. ALLERGIES: ASPIRIN higher doses causes swelling of the lips, able to tolerate 81 mg daily; LASIX al so rash, RISPERIDONE rash, TRAZODONE rash, IBUPROFEN swelling of the lips. REVIEW OF SYSTEMS: Patient not able to answer review of system. Visiting with his , the patien rubin has not been eating good for the last week. ADLs: The patient requires assistance with all his A DLs. He is not ambulatory and requires full assist with transferring. He is able sit in a wheelcha ir and propels himself in sometimes. HABITS: Alcohol none. Tobacco none. SOCIAL HISTORY: Patient is . Patient has resided in the custodial. CODE STATUS: DNR. PHYSICAL EXAMINATION: GENERAL: Shows an 86-year-old white male who is lying in bed on his left side. He is awake and talya teresa to me a little bit. He is under his covers and has a Estela Hugger of warmer on. He appears com fortable and not in any acute distress. VITAL SIGNS: His temperature is 91.1, pulse 64, respirations 12, O2 is 2 liters by nasal cannula, b lood pressure 139/80, his weight is 153. HEAD: Normocephalic. EYES: Pupils are equal, round, and reactive. Sclerae are nonicteric. EARS: TMs clear. NOSE: Normal. MOUTH AND THROAT: Mucus membranes are moist. NECK: No adenopathy. Thyroid not enlarged. LUNGS: Clear. HEART: Regular rate with no murmurs. There is a grade 3/6 systolic ejection murmur that has a cooi ng quality be heard over the aortic area and radiates toward the neck. ABDOMEN: Soft, no organomegaly, no areas of tenderness. EXTREMITIES: No edema. NEUROLOGIC: Patient is awake, respond to me with some yes/no. He has generalized weakness, but no focal weakness. IMPRESSION: 1. Urinary tract infection with probable sepsis. A. Presenting with obtundation. B. Presenting with hypothermia. 2. Advanced Alzheimer disease. A. Leaving the patient with generalized weakness such that he is no longer ambulatory. B. Requires total care. C. Complicated by behavioral issues that are controlled on Depakote. D. Complicated by wandering in his wheelchair, requiring him to be in the secure unit. 3. Coronary heart disease. A. Status post stent placement many years ago. B. Medically managed. 4. Diastolic congestive heart failure. A. Stable. No evidence of acute congestive heart failure as of 10/20/2016. 5. Severe generalized weakness. A. The patient has been left nonambulatory. B. Requires total care. 6. Hypertension. 7. History of hyperlipidemia. 8. History of transient ischemic attacks, no recent episodes. 9. Code status: DNR. 10. Dysphagia. A. Complicated by an episode of aspiration pneumonia in 08/2016. B. Managed with pureed diet with thickened liquids. C. Etiology probably from the advanced Alzheimer's. PLAN: Patient has been admitted to the hospital where he has been started on IV fluids and IV antib iotics. He is on Estela Hugger to help with the hypothermia and we will leave this on until his tempe rature normalized. He is more responsive and has little conversant. 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 Patient probably resumed on his routine medicines and a diet in the morning if he continues to wake up further. For now, we will keep him n.p.o. and hold oral medications. Patient does have a DNR status.
[2016-10-21] MEDS: Dextrose 5 % And 0.9 % NaCl 1,000 ML IV SCH ×2 (04:47→17:00)
[2016-10-21 05:05] LABS: #Lymphocytes 0.5 thou/uL (1.20-3.40); #Monocytes 0.6 thou/uL (0.11-0.59); #Neutrophils 6.2 thou/uL (1.40-6.50); %Basophils 0.4 % (0.0-1.0); %Eosinophils 0.5 % (0.0-10.0); %Monocytes 8.4 % (0.0-10.0); %Neutrophils 83.6 % (42.0-75.0); Hemoglobin 9.2 g/dL (14.0-18.0); Mean Corpuscular HGB CONC 32.9 g/dL (32.0-36.0); Mean Platelet Volume 9.1 fL (7.4-10.4); Platelet Count 182 thou/uL (130-400); RBC Distribution Width 17.5 % (11.5-14.5); Red Blood Cell (RBC) Count 3.41 mill/uL (4.70-6.10); White Blood Cell (WBC) Count 7.4 thou/uL (4.8-10.8)
[2016-10-21] MEDS: Enoxaparin Sodium 40 MG/0.4 ML SYRINGE SC SCH (05:22)
[2016-10-21] MEDS ORDERED: Bisacodyl 10 MG SUPP PR PRN (08:09)
[2016-10-21] MEDS ORDERED: Acetaminophen 325 MG TAB PO PRN (08:09)
--- NOTE | 2016-10-21 08:45 | PRG ---
DATE OF SERVICE: 10/21/2016 SUBJECTIVE: The patient has been awake this morning. His is with him. He said she has been t alking with her son. Nurses reported no problems. His temperature normalized during the night. Th e Estela Hugger was able to be discontinued. OBJECTIVE: GENERAL: Patient is lying in bed, awake, alert, talking some. He appears comfortable, no distress. VITAL SIGNS: His temperature is 97.4, pulse 82, respirations 20, O2 saturation 97% on 2 liters, blo od pressure 91/55. LUNGS: Clear. HEART: Regular rate. EXTREMITIES: No edema. LABORATORY DATA: The lab shows an H\T\H of 9.2 and 27.9, white blood cell count 7400, 84% segs, 7% lymphocytes, and platelet count of 182,000. Sodium is 131, potassium 4.3, BUN 23, creatinine 0.83, glucose 101, albumin 2.9. ASSESSMENT: Please type the impression from the history and physical done on 10/20/2016. 1. A. Resolved and back to his usual mental status baseline as 10/21/2016. 1. B. Resolved as 10/21/2016. Remaining diagnosis are the same. PLAN: We will reduce IV fluids to 75 mL per hour. We will place patient on a pureed diet with thic kened liquids and ask speech therapy to evaluate. We will restart some of his usual oral medication s.
[2016-10-21] MEDS ORDERED: Mag-Al Plus 1200 MG/1200 MG/120 MG/30 ML UDCUP PO PRN (08:47)
[2016-10-21] MEDS ORDERED: Pantoprazole 40 MG VIAL IVP SCH (09:00)
[2016-10-21] MEDS: Divalproex Sodium 125 mg Sprinkle Capsule PO SCH ×2 (14:15→20:49)
[2016-10-21] MEDS: Aspirin 81 mg Enteric Coated Tablet PO SCH (14:16)
[2016-10-21] MEDS: Polyethylene Glycol 3350 17 GM Packet PO SCH (14:16)
[2016-10-21] MEDS: Senokot 8.6 MG TAB PO SCH ×2 (14:16→20:49)
[2016-10-21] MEDS: cefTRIAXone\\ROCEPHIN 1 GM in Sodium Chloride 0.9% 100 ML IVPB SCH (18:30)
[2016-10-21] MEDS: Mirtazapine 15 MG TAB PO SCH (20:49)
[2016-10-21] MEDS: Melatonin 3 MG TAB PO SCH (20:49)
[2016-10-22] MEDS: Mirtazapine 15 MG TAB PO SCH ×2 (03:17→20:38)
[2016-10-22] MEDS: Divalproex Sodium 125 mg Sprinkle Capsule PO SCH ×3 (03:17→20:38)
[2016-10-22] MEDS: Melatonin 3 MG TAB PO SCH ×2 (03:17→20:38)
[2016-10-22] MEDS: Senokot 8.6 MG TAB PO SCH ×3 (03:17→20:39)
[2016-10-22] MEDS: Enoxaparin Sodium 40 MG/0.4 ML SYRINGE SC SCH (05:54)
[2016-10-22] MEDS: Polyethylene Glycol 3350 17 GM Packet PO SCH (08:01)
[2016-10-22] MEDS: Aspirin 81 mg Enteric Coated Tablet PO SCH (08:02)
[2016-10-22] MEDS: Pantoprazole 40 MG VIAL IVP SCH (08:04)
[2016-10-22] MEDS: Dextrose 5 % And 0.9 % NaCl 1,000 ML IV SCH ×3 (08:04→16:51)
[2016-10-22 10:18] LABS: Anion Gap 14 mmol/L (10-20); BUN (Urea Nitrogen) 12 mg/dL (8.4-25.7); Calc. Creatinine Clearance 65 mL/min (70-130); Calcium 8.6 mg/dL (7.8-10.44); Carbon Dioxide 26 mmol/L (23-31); Chloride 101 mmol/L (98-107); Estimated GFR-MDRD Greater than 90; Glucose 139 mg/dL (83-110); Potassium 3.6 mmol/L (3.5-5.1); Sodium 137 mmol/L (136-145)
--- NOTE | 2016-10-22 10:34 | PRG ---
DATE OF SERVICE: 10/22/2016 SUBJECTIVE: The patient is awake this morning. His is with him and he is taking some grape ju ice that he seems to enjoy. Last night, the nurse reports that he refused taking many of his oral m edication. OBJECTIVE: General: The patient in bed with the head elevated. He is awake, alert, and looks very comfortable and in no distress. VITAL SIGNS: Shows a temperature of 97.1, pulse 76, respirations 18, O2 sat 97% on room air, blood pressure 124/73. His weight is 153. LUNGS: Clear. HEART: Regular rate. LABORATORY DATA: Lab pending. ASSESSMENT: 1. Urinary tract infection with probable sepsis. A. Obtundation, resolved. Mental status is back to his baseline and remained stable as of 10/23/19 17. B. Hypothermia, resolved. Temperature remains in normal as of 10/22/2016. 2. Advanced Alzheimer disease. A. Leaving the patient with generalized weakness such that he is no longer ambulatory. B. Requires total care. C. Complicated by behavioral issues that are controlled on Depakote. D. Complicated by wandering in his wheelchair, requiring him to be in the secure unit. 3. Coronary heart disease. A. Status post stent placement many years ago. B. Medically managed. 4. Diastolic congestive heart failure. A. Stable. No evidence of acute congestive heart failure as of 10/22/2016. 5. Severe generalized weakness. A. The patient has been left nonambulatory. B. Requires total care. 6. Hypertension. 7. History of hyperlipidemia. 8. History of transient ischemic attacks, no recent episodes. 9. Code status: DNR. 10. Dysphagia. A. Complicated by an episode of aspiration pneumonia in 08/2016. B. Managed with pureed diet with thickened liquids. C. Etiology probably from the advanced Alzheimer's. PLAN: We will continue present care. We will continue IV antibiotics. Cultures are pending. Red uce IV rate to 50 mL per hour.
[2016-10-22 10:35] LABS: #Eosinphils 0.2 thou/uL (0.0-0.7); #Lymphocytes 0.8 thou/uL (1.20-3.40); #Monocytes 0.4 thou/uL (0.11-0.59); #Neutrophils 3.5 thou/uL (1.40-6.50); %Basophils 0.9 % (0.0-1.0); %Eosinophils 3.9 % (0.0-10.0); %Lymphocytes 15.5 % (21.0-51.0); %Monocytes 8.4 % (0.0-10.0); %Neutrophils 71.3 % (42.0-75.0); Hemoglobin 8.9 g/dL (14.0-18.0); Mean Corpuscular HGB CONC 31.7 g/dL (32.0-36.0); Mean Corpuscular Hemoglobin 26.6 pg (27.0-31.0); Mean Platelet Volume 8.9 fL (7.4-10.4); Platelet Count 178 thou/uL (130-400); RBC Distribution Width 18.2 % (11.5-14.5); Red Blood Cell (RBC) Count 3.36 mill/uL (4.70-6.10); White Blood Cell (WBC) Count 4.9 thou/uL (4.8-10.8)
[2016-10-22] MEDS: Donepezil HCl 10 MG TAB PO SCH ×2 (16:50→20:39)
[2016-10-22] MEDS: cefTRIAXone\\ROCEPHIN 1 GM in Sodium Chloride 0.9% 100 ML IVPB SCH (17:41)
[2016-10-23] MEDS: Enoxaparin Sodium 40 MG/0.4 ML SYRINGE SC SCH (05:28)
[2016-10-23 08:48] LABS: Hemoglobin 9.3 g/dL (14.0-18.0); Mean Corpuscular HGB CONC 32.9 g/dL (32.0-36.0); Mean Corpuscular Hemoglobin 27.4 pg (27.0-31.0); Mean Corpuscular Volume 83.3 fl (80.0-94.0); Mean Platelet Volume 8.7 fL (7.4-10.4); Platelet Count 188 thou/uL (130-400); RBC Distribution Width 18.2 % (11.5-14.5); White Blood Cell (WBC) Count 6.8 thou/uL (4.8-10.8)
[2016-10-23 08:49] LABS: Band 4 % (5-11); Lymphocytes 17 % (21-51); Monocytes 9 % (0-10); Neutrophil 70 % (42-75)
[2016-10-23 08:50] LABS: Delete Auto Diff?? YES; Hypochromia MODERATE=16-30 cells (100X) (0-5/hpf); Target Cells SLIGHT = 2-5 cells (100X) (0-1/hpf)
[2016-10-23 08:52] LABS: Anion Gap 14 mmol/L (10-20); BUN (Urea Nitrogen) 12 mg/dL (8.4-25.7); Calc. Creatinine Clearance 68 mL/min (70-130); Calcium 8.6 mg/dL (7.8-10.44); Carbon Dioxide 26 mmol/L (23-31); Chloride 100 mmol/L (98-107); Estimated GFR-MDRD Greater than 90; Glucose 88 mg/dL (83-110); Potassium 3.1 mmol/L (3.5-5.1); Sodium 137 mmol/L (136-145)
[2016-10-23] MEDS: Divalproex Sodium 125 mg Sprinkle Capsule PO SCH ×2 (09:01→20:35)
[2016-10-23] MEDS: Pantoprazole 40 MG VIAL IVP SCH (09:01)
[2016-10-23] MEDS: Aspirin 81 mg Enteric Coated Tablet PO SCH (09:01)
[2016-10-23] MEDS: Polyethylene Glycol 3350 17 GM Packet PO SCH (09:01)
[2016-10-23] MEDS: Senokot 8.6 MG TAB PO SCH ×2 (09:02→20:36)
--- NOTE | 2016-10-23 14:39 | PRG ---
DATE OF SERVICE: 10/23/2016 SUBJECTIVE: This morning the patient is sitting up in a bedside chair. He has been very pleasant a nd eating a little bit of his pureed breakfast. His said that during the night he apparently b ecame more agitated. The nurses report patient got up out of bed and pulled out his IV. These have not been restarted. He was kept at the nurses' station in a wheelchair, and there he seem to be pl easant. OBJECTIVE: GENERAL: Presently, patient is sitting in a bedside chair. He looks very comfortable in no distress . VITAL SIGNS: His temperature is 95.1, pulse 89, respirations 16, O2 sat 96% on room air, blood pres sure 145/70. LUNGS: Clear. HEART: Regular rate. EXTREMITIES: There is no edema. LABORATORY DATA: Yesterday, his labs showed sodium of 137, potassium of 3.6, BUN down to 12, creati nine 0.77, glucose 139, albumin 2.9. Yesterday, his CBC showed an H\T\H of 9 and 28.2. White cell count 4900 with 71% segs, 16% lymphocytes, platelet count of 178,000. Culture is pending. ASSESSMENT: 1. Urinary tract infection with probable sepsis. A. Obtundation, resolved. Mental status is back to his baseline and remained stable as of 11/2016. B. Hypothermia, resolved. Temperature remains in normal as of 10/22/2016. C. Culture results are pending as of 10/23/2016. 2. Advanced Alzheimer disease. A. Leaving the patient with generalized weakness such that he is no longer ambulatory. B. Requires total care. C. Complicated by behavioral issues that are controlled on Depakote. D. Complicated by wandering in his wheelchair, requiring him to be in the secure unit. 3. Coronary heart disease. A. Status post stent placement many years ago. B. Medically managed. 4. Diastolic congestive heart failure. A. Stable. No evidence of acute congestive heart failure as of 10/23/2016. 5. Severe generalized weakness. A. The patient has been left nonambulatory. B. Requires total care. 6. Hypertension. 7. History of hyperlipidemia. 8. History of transient ischemic attacks, no recent episodes. 9. Code status: DNR. 10. Dysphagia. A. Complicated by an episode of aspiration pneumonia in 08/2016. B. Managed with pureed diet with thickened liquids. C. Etiology probably from the advanced Alzheimer's. PLAN: The patient is back to his usual mental status, been back awake at night time and wanting to wander in the wheelchair. The culture results are pending. We will stop the IV fluids, but continue the I V antibiotics.
[2016-10-23] MEDS: cefTRIAXone\\ROCEPHIN 1 GM in Sodium Chloride 0.9% 100 ML IVPB SCH (17:22)
[2016-10-23] MEDS: Donepezil HCl 10 MG TAB PO SCH (20:35)
[2016-10-23] MEDS: Mirtazapine 15 MG TAB PO SCH (20:36)
[2016-10-23] MEDS: Melatonin 3 MG TAB PO SCH (20:36)
[2016-10-24] MEDS: Enoxaparin Sodium 40 MG/0.4 ML SYRINGE SC SCH (05:40)
[2016-10-24] MEDS ORDERED: Sodium Chloride Irrig Solution 250 ML BOT ONE (06:59)
[2016-10-24] MEDS ORDERED: Sodium Chloride 0.9% 1,000 ML BAG ONE (06:59)
[2016-10-24] MEDS ORDERED: Dextrose 5 % And 0.9 % NaCl 1000 ml Bag ONE (06:59)
[2016-10-24] MEDS: Dextrose 5 % And 0.9 % NaCl 1,000 ML IV SCH (07:01)
[2016-10-24] MEDS ORDERED: Mirtazapine 15 MG TAB PO SCH ×2 (08:06→21:00)
--- NOTE | 2016-10-24 09:11 | PRG ---
DATE OF SERVICE: 10/24/2016 SUBJECTIVE: The patient's is with him this morning said he is eating just a little bit. Prior to his admission and during the admission his eating has been pretty poor. She wondered if he kenneth hernandez needs to be on the Aricept, not sure it is really helping any. He continues to take the mirtazapi ne at nighttime in an effort to try to help with the appetite and help with his rest. OBJECTIVE: The patient is lying in bed sleeping. He appears very comfortable and in no distress. His temperature is 96.7, pulse 79, respirations 20, O2 sat 100%, blood pressure 101/56. Lungs are clear. Heart, regular rate. Yesterday's labs showed a potassium down to 3.1, glucose was 88. ASSESSMENT: 1. Urinary tract infection with probable sepsis. A. Obtundation, resolved. Mental status is back to his baseline and remained stable as of 11/2016. B. Hypothermia, resolved. Temperature remains in normal as of 10/22/2016. C. Culture results are pending as of 10/24/2016. 2. Advanced Alzheimer disease. A. Leaving the patient with generalized weakness such that he is no longer ambulatory. B. Requires total care. C. Complicated by behavioral issues that are controlled on Depakote. D. Complicated by wandering in his wheelchair, requiring him to be in the secure unit. 3. Coronary heart disease. A. Status post stent placement many years ago. B. Medically managed. 4. Diastolic congestive heart failure. A. Stable. No evidence of acute congestive heart failure as of 10/23/2016. 5. Severe generalized weakness. A. The patient has been left nonambulatory. B. Requires total care. 6. Hypertension. 7. History of hyperlipidemia. 8. History of transient ischemic attacks, no recent episodes. 9. Code status: DNR. 10. Dysphagia. A. Complicated by an episode of aspiration pneumonia in 08/2016. B. Managed with pureed diet with thickened liquids. C. Etiology probably from the advanced Alzheimer's. 11. Anorexia. PLAN: We will leave patient on IV antibiotics for another day unless he loses IV. We will stop the Aricept in the event this is contributing to the anorexia. At this late stage of his Alzheimer's, doubtful this is of any assistance. We will increase his mirtazapine to 30 mg at bedtime to help wi th the rest and this might help stimulate his appetite. Probably will move back to the [facility] tomorrow. We will place the patient on potassium supplementation.
[2016-10-24] MEDS: Senokot 8.6 MG TAB PO SCH ×2 (12:55→20:27)
[2016-10-24] MEDS: Divalproex Sodium 125 mg Sprinkle Capsule PO SCH ×2 (12:55→20:23)
[2016-10-24] MEDS: Aspirin 81 mg Enteric Coated Tablet PO SCH (12:55)
[2016-10-24] MEDS: Polyethylene Glycol 3350 17 GM Packet PO SCH (12:55)
[2016-10-24] MEDS: Pantoprazole 40 MG VIAL IVP SCH (12:57)
[2016-10-24] MEDS: Potassium Chloride 10 MEQ TAB PO SCH (17:18)
[2016-10-24] MEDS: cefTRIAXone\\ROCEPHIN 1 GM in Sodium Chloride 0.9% 100 ML IVPB SCH (17:21)
[2016-10-24] MEDS: Melatonin 3 MG TAB PO SCH (20:23)
[2016-10-25] MEDS: Enoxaparin Sodium 40 MG/0.4 ML SYRINGE SC SCH ×3 (05:47→08:00)
[2016-10-25] MEDS: Divalproex Sodium 125 mg Sprinkle Capsule PO SCH (08:01)
[2016-10-25] MEDS: Aspirin 81 mg Enteric Coated Tablet PO SCH (08:01)
[2016-10-25] MEDS: Senokot 8.6 MG TAB PO SCH (08:02)
[2016-10-25] MEDS: Polyethylene Glycol 3350 17 GM Packet PO SCH (08:02)
[2016-10-25] MEDS: Potassium Chloride 10 MEQ TAB PO SCH (08:02)
--- NOTE | 2016-10-25 09:13 | DIS ---
FINAL DIAGNOSES: 1. Urinary tract infection with probable sepsis. A. Obtundation, resolved. Mental status is back to his baseline and remained stable as of 11/2016. B. Hypothermia, resolved. Temperature remains in normal as of 10/22/2016. C. Culture results are pending as of 10/24/2016. 2. Advanced Alzheimer disease. A. Leaving the patient with generalized weakness such that he is no longer ambulatory. B. Requires total care. C. Complicated by behavioral issues that are controlled on Depakote. D. Complicated by wandering in his wheelchair, requiring him to be in the secure unit. 3. Coronary heart disease. A. Status post stent placement many years ago. B. Medically managed. 4. Diastolic congestive heart failure. A. Stable. No evidence of acute congestive heart failure as of 10/23/2016. 5. Severe generalized weakness. A. The patient has been left nonambulatory. B. Requires total care. 6. Hypertension. 7. History of hyperlipidemia. 8. History of transient ischemic attacks, no recent episodes. 9. Code status: DNR. 10. Dysphagia. A. Complicated by an episode of aspiration pneumonia in 08/2016. B. Managed with pureed diet with thickened liquids. C. Etiology probably from the advanced Alzheimer's. 11. Anorexia. REASON FOR ADMISSION: The patient is an 86-year-old white male who has advanced Alzheimer disease t hat is complicated by wandering in wheelchair and generalized weakness such that he is no longer amb ulatory. He also has hypertension, chronic diastolic congestive heart failure and coronary heart di sease for which he had a stent years ago that presently is medically managed. The [facility] in a secure unit. There he requires total care. He is able to get up in a wheel chair and tends to wander in the wheelchair, necessitating the secure unit. The patient was brought to the emergency room on the day of admission 10/20/2016 because he was unresponsive. On initial p resentation, the patient was obtunded. His vital signs were stable and temperature was 91. His wif e said for the last few days before admission, he had not been eating very well and then on the morn ing of admission, he could not be aroused. Initial evaluation in the emergency room showed the obtu ndation, he was hypothermic. Blood pressure was 139/80. O2 sat on 2 liters was 100%. His chest x- ray showed the lungs to be clear. The patient's white cell count was 6400, hemoglobin 10.5, sodium 132, BUN 25, creatinine 0.99. Cath urine shows specific gravity 1.020 and the WBCs were too krystal us to count. The patient had IV fluids started, was started on IV antibiotics and presumably urine and blood cultures were obtained. He was placed on IV Levaquin and Rocephin. HOSPITAL COURSE: The patient was admitted to his hospital room, was placed on a Estela Hugger to help raise his temperature up. The patient was seen soon after his admission and at this time he was re sponding and answering questions and temperature was gradually coming back to normal. His blood pre ssure remained normal. The patient was continued on IV Rocephin and Levaquin. The patient became m ore alert and returned to his usual mental status. His temperature normalized and Estela Hugger was a ble to be discontinued. His condition normalized. There were no reports of any urine culture sent back nor blood cultures. This is being looked into. The patient remained afebrile and returned to his usual baseline. With his advanced Alzheimer's feeding has been difficult. Prior to admission maddison mcgill had been on a pureed diet with nectar thickened liquids. He would take this, but not very well. He did drink grape juice and would eat Ensure pudding. The eating has been an ongoing issue even at the [facility] and feel like this is the result of advanced Alzheimer's. He has been on Aricept and this will be stopped since not sure this is offering much benefit at this point in his progressi ve dementia and may be contributing to the poor appetite. The patient pulled out his IV on one occa deidre, this was restarted and then again pulled this out on the evening of 10/24/2016. This was left out and he was placed on oral antibiotics with Levaquin since he remained afebrile. On 10/25/2016 his condition was stable. At nighttime he would awaken and get up in his wheelchair and the nurses will watch him at the nurses station. His vitals remained stable. His lungs remained clear. His c ondition was stable it was felt that he could now be managed at the [facility]. His initial prese ntation with the obtundation was secondary to a urinary tract infection with some mild dehydration t hat had resolved with hydration. His long-term prognosis is poor due to his advanced Alzheimer dise ase and feeding difficulties and also comorbidities. The patient has a history of a chronic diastol ic congestive heart failure. During his hospitalization, there was no evidence of any acute CHF. Maddison mcgill also has a history of severe venous insufficiency that has been controlled. During the admission, there was no edema. The patient's code status is a DNR. No blood cultures were obtained upon admission prior to his IV antibiotics and no urine culture was ordered. DISPOSITION: DIET: Pureed diet. No added salt. Liquids are nectar thickened. May supplemented with house josemanuel es 3 times a day and Ensure pudding twice a day. All feeding should be with patient in an upright p osition and will require someone to feed him very small bites at a time. ACTIVITIES: Up in a wheelchair as tolerated. MEDICATIONS: Tylenol 325 mg 2 every 4 hours as needed, this may be crushed, aspirin 81 mg daily, Bu kelsie 3 mg b.i.d., Depakote sprinkle 250 mg b.i.d. this capsule maybe and placed in a puddin g to administer, Levaquin 500 mg p.o. daily x5 days, this may be crushed, melatonin 9 mg at bedtime, mirtazapine 30 mg at bedtime, MiraLax 17 grams in 8 ounces of water daily, Senokot-S 1 b.i.d. as ne eded, potassium 10 mEq b.i.d. LAB: In 1 week please obtain a basic metabolic panel. FOLLOW UP: The patient will be seen in followup in a week unless there is interval problem. CODE STATUS: DNR.
[2016-10-25 14:36] VITALS: BP 101/63; TEMP 96.4
== END 2016-10-25 14:35 | DRG 872 ==
LOC: MADERS 10:03 → MADMS 13:26
PROVIDERS: ADMIT Family Medicine; ATTEND Family Medicine
DX: A41.9 Sepsis, unspecified organism (principal); N39.0 Urinary tract infection, site not specified; I50.32 Chronic diastolic (congestive) heart failure; I11.0 Hypertensive heart disease with heart failure; F02.81 Dementia in other diseases classified elsewhere, unspecified severity, with behavioral disturbance; R68.0 Hypothermia, not associated with low environmental temperature; G30.9 Alzheimer's disease, unspecified; Z91.83 Wandering in diseases classified elsewhere; Z66 Do not resuscitate; I25.10 Atherosclerotic heart disease of native coronary artery without angina pectoris; Z95.5 Presence of coronary angioplasty implant and graft; E78.5 Hyperlipidemia, unspecified; Z86.73 Personal history of transient ischemic attack (TIA), and cerebral infarction without residual deficits; R13.10 Dysphagia, unspecified; R63.0 Anorexia; Z68.20 Body mass index [BMI] 20.0-20.9, adult; R63.3 Feeding difficulties; E86.0 Dehydration; I87.2 Venous insufficiency (chronic) (peripheral); Z88.6 Allergy status to analgesic agent; Z88.8 Allergy status to other drugs, medicaments and biological substances
CPT/HCPCS: 36415; 51701; 71010; 80048; 80053; 81003; 81015; 82550; 82553; 83735; 83880; 84484; 85025; 85610; 85730; 93005; 94760; 96372; 96374; A4216; C9113; G8996-GN-CL; G8997-GN-CL; J0696; J1650; J1956; J7042; J7050